=== PATIENT | male | born 2005 | race Hispanic/Latino ===

== ENCOUNTER 2024-09-16 06:20 | Emergency (ER) | payer MEDICAID, SELFPAY ==
[2024-09-16 06:34] VITALS: BP 128/92; PULSE 100; RESP 18; TEMP 38.6; O2SAT 98; BMI 19.3
--- NOTE | 2024-09-16 06:34 | RAD_ITS ---
STUDY: X-RAY CHEST REASON FOR EXAM: Male, 18 years old patient with fever. TECHNIQUE: PA and lateral views of the chest. COMPARISON: None. FINDINGS: The lungs are clear and expanded. There is no demonstrated pleural abnormality. Normal size heart. Normal mediastinum and aster. Normal visualized pulmonary arteries. Normal visualized aortic arch and descending thoracic aorta. Normal visualized thoracic spine. Normal visualized ribs, clavicles, and shoulders. There is no demonstrated abnormality of the visualized soft tissue structures of the upper abdomen. RAD/Chest PA and Lateral IMPRESSION: No radiographic evidence of acute cardiopulmonary disease. Electronically Signed: Veronika Talavera MD at 7:34 EST ,
--- NOTE | 2024-09-16 06:36 | EX.ED.DYSGE1 ---
HPI History of Present Illness Chief Complaint: General Illness Informant: patient, family and EMS Narrative Narrative: Patient is a 18-year-old male with no significant past medical history. He states that yesterday began feeling warm and flushed with a headache. He states this made him feel tired and fatigued. He reports he has had mild congestion and cough with this as well. He also notes he has noted pain in the left low back but states there is been no recent trauma or excessive activity. He denies any dysuria or hematuria. He denies any history of IV drug use or loss of bowel or bladder control. However as his symptoms have persisted for the past 24 hours he is concerned about infection and therefore comes in for evaluation [facility] Medical History no medical history no medical history Home Medications ?Medication ?Instructions ?Recorded ?Last Taken ?Type NK 09/16/24 Unknown History Allergy/AdvReac Type Severity Reaction Status Date / Time No Known Allergies Allergy Verified 09/16/24 06:24 Surgical History no surgical history [facility] ED Constitutional Constitutional ED: Reports chills, fever(s) and subjective Eyes Eyes: Denies blurry vision or change in vision ENT ENT ED: Reports rhinorrhea and sore throat Cardiovascular Cardiovascular: Denies chest pain Respiratory/Chest Respiratory/Chest: Reports cough; Denies dyspnea Gastrointestinal Gastrointestinal: Denies abdominal pain, diarrhea, nausea or vomiting Genitourinary Genitourinary ED: Denies dysuria, hematuria or urinary frequency Musculoskeletal Musculoskeletal: Reports back pain Integumentary Denies rash Neurologic Neurologic: Reports headache(s) Hematologic/Lymphatic Hematologic/Lymphatic: Denies easy bleeding or easy bruising EXAM Physical Exam Const Vital Signs: 09/16/24 06:34 09/16/24 06:35 09/16/24 06:39 Temperature 101.5 F H 101.5 F H Temperature Source Oral Oral Pulse Rate 100 100 Respiratory Rate 18 16 Respiratory Effort Normal Non-Labored Respiratory Pattern Normal Blood Pressure 128/92 H 108/47 L Blood Pressure Mean 104 67 Pulse Ox 98 97 Oxygen Delivery Method Room Air Room Air Positive well nourished and well developed General Appearance ED: well developed; Negative for pallor HEENT HEENT Narrative: Nasal mucosa is hyperemic and boggy There is cobblestoning noted in the posterior pharynx consistent with sinus drainage without airway edema or compromise No trismus change in voice or difficulty with secretions no obvious abscess noted Bilateral TMs are retracted but show no secondary changes to suggest infection Eyes PERRL and EOMs intact bilaterally General Eye ED: Negative for scleral icterus Neck supple Neck Narrative: No nuchal rigidity or meningeal signs Resp normal respiratory effort Resp Narrative: Breath sounds are slight diminished throughout with faint expiratory wheeze in the bilateral lower lobes but no signs of respiratory distress Cardio regular rhythm Rate: tachycardic and other Other Details: Slightly tachycardic rate with regular rhythm No murmurs rubs or gallops Radial and carotid pulses are equal and symmetric GI normal to inspection, nondistended, normoactive bowel sounds, non-tender, non-distended and no masses GI Narrative: No voluntary guarding or rigidity or pulsatile mass Auscultation: normoactive bowel sounds Palpation: soft Back/Spine no CVA tenderness Back/Spine Narrative: No bony deformity or step-off of the thoracic or lumbar spine no midline tenderness to palpation No CVA pain noted No overlying soft tissue changes to suggest trauma or infection No saddle anesthesia. Negative straight leg raise. No clonus or Babinski. Patellar reflexes are plus 2 out of 4 bilaterally Extremity normal to inspection Extremity Narrative: No asymmetric edema no pitting edema negative Homans' sign bilaterally Neuro oriented x3, CN's II-XII intact bilaterally and no sensory deficits noted Neuro Narrative: GCS of 15 Cranial nerves II through XII are grossly intact without focal neurologic deficit No pronator drift no dysmetria no truncal ataxia NIH stroke scale score of 0 Sensorium / Orientation: alert Motor Exam: strength 5/5 throughout Psych Psych Narrative: Patient has a flat affect Skin no rashes or lesions noted and no wounds Skin Narrative: No overlying soft tissue changes to suggest trauma or infection General Skin Exam: Negative for jaundice or pallor MDM MDM MDM Narrative Medical decision making narrative: Patient arrived to the ER febrile but otherwise with stable vitals. Constellation of symptoms is most consistent with a viral infection such as COVID versus influenza versus RSV. With his report of back pain and mild cough he could also have potential pneumonia or pneumothorax. He denies loss of bowel or bladder control or IV drug use going against cauda equina or epidural abscess. He denies hematuria but UTI/pyelonephritis or kidney stone are potential diagnoses for his back pain and fever so therefore a urine sample will be obtained. Based on his physical exam I feel that if the urine does not show blood concern for kidney stone is low as the pain is reproducible with motion and therefore there is no need for a CT scan unless he has gross hematuria. He also reported that his brother was sick with similar symptoms a few days prior to his beginning which would indicate this is most likely a viral infection which is spreading throughout the home. Based on his fever and symptoms basic blood work will be obtained to look for changes consistent with acute kidney injury electrolyte abnormality UTI/pyelonephritis versus kidney stone versus sepsis and chest x-ray will be obtained to assess for potential pneumonia Patient was given 1 L of fluid and ibuprofen to help with symptoms and reduce fever At this time imaging and laboratory results are still pending and therefore he will be signed out to the day physician Dr. Otoole pending results History & Record Review Discussion w/independent historian: Patient and Family Lab Data Attestation: I reviewed the patient's lab results. Labs: Laboratory Results - last 24 hr 09/16/24 06:40 WBC 5.7 RBC 5.09 Hgb 13.7 Hct 41.5 MCV 81.5 MCH 26.9 L MCHC 33.0 RDW Std Deviation 37.3 RDW Coeff of Diaz 12.6 Plt Count 168 MPV 11.5 Immature Gran % (Auto) 0.400 Neut % (Auto) 82.5 H Lymph % (Auto) 6.5 L [place] % (Auto) 10.2 H Eos % (Auto) 0.2 Baso % (Auto) 0.2 Absolute Neuts (auto) 4.7 Absolute Lymphs (auto) 0.37 L Nucleated RBC % 0 Sodium 139 Potassium 3.3 L Chloride 107 Carbon Dioxide 26.0 Anion Gap 6 BUN 9 Creatinine 0.85 Estim Creat Clear Calc 112.91 Est GFR (MDRD) Af Amer 147 Est GFR (MDRD) Non-Af 122 BUN/Creatinine Ratio 10.5 Glucose 128 H Calcium 8.8 Radiography Diagnostic Testin view chest x-ray as interpreted by the emergency medicine physician reveals no acute infiltrate pneumothorax or pleural effusion Discharge Plan Triage Chief Complaint: General Illness ED Provider: Zaid Obrien Dx/Rx/DC Orders Clinical Impression: Pyrexia, Viral syndrome Prescriptions: No Action NK Primary Care Provider: Care Physician,No Primary Print Language: Polish
[2024-09-16 06:39] VITALS: BP 108/47; PULSE 100; RESP 16; TEMP 38.6; O2SAT 97
[2024-09-16] MEDS: 0.9% Normal Saline (1000mL) 1,000 ML 999 ML IV (06:42)
[2024-09-16] MEDS: Ibuprofen 600 MG Tablet PO (06:44)
[2024-09-16 06:56] LABS: Absolute Lymphocyte Count 0.37 X10^3/uL (0.83-4.51); Absolute Neutrophil Count 4.7 X10^3/uL (2.0-7.7); Basophil# 0.01 X10^3/uL; Basophil% 0.2 % (0-1); Eosinophil# 0.01 X10^3/uL; Eosinophils% 0.2 % (0-5); Hematocrit 41.5 % (40-54); Hemoglobin 13.7 g/dL (13.0-16.5); Lymphocyte # 0.37 X10^3/ul (0.83-4.51); Lymphocyte % 6.5 % (19-41); Mean Corpuscular Hgb 26.9 pg (27.0-32.0); Mean Corpuscular Volume 81.5 fL (80-94); Mean Platelet Vol. 11.5 fl (6.2-12.0); Monocyte# 0.58 X10^3/uL; Monocyte% 10.2 % (0-10); NRBC Flagged by Analyzer 0 % (0-5); Neutrophil # 4.72 X10^3/uL (2.7-7.7); Neutrophil % 82.5 % (47-70); POSITIVE DIFFERENTIAL YES; Platelet Count 168 K/mm3 (150-450); RBC Distribution Width CV 12.6 % (11.6-14.6); RBC Distribution Width SD 37.3 fl (35.1-43.9); Red Blood Count 5.09 M/mm3 (4.6-6.2); White Blood Count 5.7 K/mm3 (4.4-11.0)
[2024-09-16 07:09] LABS: Anion Gap 6 (5-15); BUN 9 mg/dL (7-18); BUN/Creat Ratio 10.5 RATIO (10-20); Calcium,Total 8.8 mg/dL (8.5-10.1); Chloride 107 mmol/L (98-107); Creatinine, Serum 0.85 mg/dL (0.70-1.30); EST Glomerular Filtration Rate 122 mL/min (>60); Est Glom Filt Rate - Afr Amer 147 mL/min (>60); Estimated Creatinine Clearance 112.91 ml/min; Glucose 128 mg/dL (74-106); Potassium 3.3 mmol/L (3.5-5.1); Sodium Level 139 mmol/L (136-145)
[2024-09-16 08:04] LABS: Bacteria 0 SEEN /hpf (None Seen); Mucous, Urine 0 SEEN /hpf (<or=2+); Red Blood Cells-Urine 0 SEEN /hpf (0-5); Squamous Epithelial Cells - UA 0 SEEN /hpf (0-5); White Blood Cells 0 SEEN /hpf (0-5)
[2024-09-16 08:21] VITALS: BP 118/78; PULSE 64; RESP 18; O2SAT 98
[2024-09-16 08:32] LABS: Color, Urine Yellow (Yellow); Glucose, Dipstick Normal (Normal); Ketone-Dipstick Negative (Negative); Leukocyte Esterase-Dipstick Negative /ul (Negative); Nitrite-Dipstick Negative (Negative); Occult Blood-Urine Negative /ul (Negative); Protein-Dipstick 15 mg/dl (Negative); Specific Gravity, Urine 1.005 (1.002-1.030); Urine Bilirubin Dipstick Negative (Negative); Urine Clarity Clear (Clear); Urine Urobilinogen Normal (Normal)
[2024-09-16 08:58] VITALS: BP 104/78; PULSE 78; RESP 16; TEMP 37.1; O2SAT 98
== END 2024-09-16 08:59 | disposition home or self-care (01) ==
PROVIDERS: Emergency Provider Emergency Medicine; Visit Provider Emergency Medicine
DX: R50.9 Fever, unspecified (principal); J11.1 Influenza due to unidentified influenza virus with other respiratory manifestations
CPT/HCPCS: 71046; 80048; 81001; 85025; 87631; 87651; 96360; 99285; A4216